=== PATIENT | male | born 1995 | race African-American/Black ===

== ENCOUNTER 2020-05-19 21:56 | Emergency (ER) | payer MEDICAID, OTHER ==
[~2020-05-19] VITALS: Ht 182.9 cm; Wt 79.4 kg
[2020-05-19 22:07] VITALS: BP 105/66
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
[2020-05-19] MEDS ORDERED: HYDROcodone/Acetamin 5/325 tab ORAL ONE (22:15)
[2020-05-19] MEDS ORDERED: IBUPROFEN600 M1 ORAL (22:18)
[2020-05-19] MEDS ORDERED: PREDNISONE20 MG ORAL (22:18)
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
--- NOTE | 2020-05-19 22:25 | NUR ---
ED Nurse Note: x ray taken at bedside.
--- NOTE | 2020-05-19 22:27 | NUR ---
ER DISCHARGE NOTE: Patient is cleared to be discharged per ERMD, pt is aox4, on room air, with stable vital signs. pt was given dc and prescription instructions, pt was able to verbalize understanding, pt id band removed without complications. pt is able to ambulate with steady gait. pt took all belongings.
[2020-05-19 22:28] VITALS: BP 110/70
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
== END 2020-05-19 22:28 | disposition home or self-care (01) ==
LOC: EMR 22:28
DX: J45.21 Mild intermittent asthma with (acute) exacerbation (principal); S20.219A Contusion of unspecified front wall of thorax, initial encounter; V43.62XA Car passenger injured in collision with other type car in traffic accident, initial encounter; Y92.410 Unspecified street and highway as the place of occurrence of the external cause
CPT/HCPCS: 71045; Z7502; 99283